=== PATIENT | male | born 1980 | race African-American/Black ===

== ENCOUNTER 2017-04-08 17:16 | Emergency (ER) | payer SELFPAY ==
[~2017-04-08] VITALS: Ht 170.2 cm; Wt 75.0 kg
[2017-04-08] MEDS ORDERED: KETOROLAC TROMETHAMINE 30 MG/ML VIAL IM ONE (18:30)
[2017-04-08] MEDS ORDERED: PERTUSS(ACELL),DIPH,TET VAC/PF 0.5 ML VIAL IM ONE (19:00)
[2017-04-08] MEDS ORDERED: LIDOCAINE HCL 1% 10 ML VIAL INJ ONE (19:00)
[2017-04-08] MEDS ORDERED: HYDROCODONE/ACETAMINOPHEN 5-325 MG TABLET PO ONE (19:45)
[2017-04-08] MEDS ORDERED: SULFAMETHOX/TRIMETH DS 800-160 MG/TABLET PO ONE (20:00)
[2017-04-08 20:25] VITALS: BP 135/77
== END 2017-04-08 20:25 | disposition home or self-care (01) ==
LOC: EDUNIT# 17:16 → EMS 17:19
DX: L03.113 Cellulitis of right upper limb (principal); F32.9 Major depressive disorder, single episode, unspecified; F17.210 Nicotine dependence, cigarettes, uncomplicated
CPT/HCPCS: 73130; 90471; 90715; 93005; 96372; 99284; 99406; J0690; J1885; J3490